=== PATIENT | female | born 1970 | race Caucasian/White ===

== ENCOUNTER 2017-03-07 14:39 | Emergency (ER) | payer BC ==
[2017-03-07] MEDS: MORPHINE 2 MG/ML 1ML SYRINGE IV ×2 (15:42→16:18)
[2017-03-07 15:51] LABS: BASO # 0.1 10^3/uL (0.0-0.2); BASO % 0.4 % (0.0-1.0); EOS # 0.2 10^3/uL (0.0-0.50); EOS % 1.3 % (0.0-3.0); HEMATOCRIT 43.4 % (36.0-47.0); HEMOGLOBIN 14.4 g/dl (12.0-16.0); IMMATURE GRANULOCYTE % 0.2 % (0-0); LYMPH # 3.6 10^3/uL (1.5-4.5); LYMPH % 26.3 % (24.0-44.0); MEAN CORPUSCULAR HEMOGLOBIN 30.8 pg (27.0-33.0); MEAN CORPUSCULAR HGB CONC 33.2 g/dl (32.0-36.5); MEAN CORPUSCULAR VOLUME 92.7 fl (80.0-96.0); MONO # 0.5 10^3/uL (0.0-0.8); MONO % 3.9 % (0.0-5.0); NEUTROPHILS # 9.3 10^3/uL (1.8-7.7); NEUTROPHILS % 67.9 % (36.0-66.0); PLATELET COUNT, AUTOMATED 271 10^3/uL (150-450); RED BLOOD COUNT 4.68 10^6/uL (4.00-5.40); RED CELL DISTRIBUTION WIDTH 12.4 % (11.5-14.5); WHITE BLOOD COUNT 13.7 10^3/uL (4.0-10.0)
[2017-03-07 16:06] LABS: LACTIC ACID SEPSIS PROTOCOL 0.7 MMOL/L (0.4-2.0)
[2017-03-07 16:07] LABS: ALBUMIN/GLOBULIN RATIO 1.11 (1.00-1.93); ALKALINE PHOSPHATASE 102 U/L (45-117); ALT/SGPT 24 U/L (12-78); ANION GAP 6 MEQ/L (8-16); AST/SGOT 18 U/L (7-37); BILIRUBIN,DIRECT < 0.1 MG/DL (0.0-0.2); BILIRUBIN,TOTAL 0.2 MG/DL (0.2-1.0); BLOOD UREA NITROGEN 18 MG/DL (7-18); C REACTIVE PROTEIN QUANTITATIV 1.72 MG/DL (0.00-0.30); CALCIUM LEVEL 9.2 MG/DL (8.5-10.1); CARBON DIOXIDE LEVEL 27 MEQ/L (21-32); CHLORIDE LEVEL 106 MEQ/L (98-107); CREATININE FOR GFR 0.67 MG/DL (0.55-1.30); GLOMERULAR FILTRATION RATE > 60.0 (>58); GLUCOSE, FASTING 110 MG/DL (70-100); POTASSIUM SERUM 3.9 MEQ/L (3.5-5.1); SODIUM LEVEL 139 MEQ/L (136-145); TOTAL PROTEIN 7.6 GM/DL (6.4-8.2)
[2017-03-07] MEDS ORDERED: ISOVUE-370 76% 100ML VIAL (Q9967) As Ordered (16:38)
[2017-03-07] MEDS: ALPRAZolam 0.25 MG TAB PO (17:49)
[2017-03-07] MEDS: CLINDAMYCIN 900 MG in APPROPRIATE DILUENT 1 EA IV (17:49)
[2017-03-07] MEDS: KETOROLAC 30 MG/ML VIAL (J1885) IV (18:59)
[2017-03-07] MEDS: ONDANSETRON 4MG/2ML VIAL (J2405) IV (19:24)
[2017-03-07] MEDS: diphenhydrAMINE INJ 50MG/ML VIAL (J1200) IV (19:24)
[2017-03-07] MEDS: MORPHINE 4 MG/ML 1ML SYRINGE IV (19:25)
== END 2017-03-07 19:41 | disposition home or self-care (01) ==
LOC: M ED 14:39
DX: K04.7 Periapical abscess without sinus (principal); S02.5XXA Fracture of tooth (traumatic), initial encounter for closed fracture; X58.XXXA Exposure to other specified factors, initial encounter; Y92.89 Other specified places as the place of occurrence of the external cause; F41.9 Anxiety disorder, unspecified; F17.210 Nicotine dependence, cigarettes, uncomplicated; Z79.899 Other long term (current) drug therapy; Z87.42 Personal history of other diseases of the female genital tract; Z98.890 Other specified postprocedural states
CPT/HCPCS: J1200

== ENCOUNTER 2017-03-08 08:45 | Inpatient (IN) | payer BC ==
[2017-03-08] MEDS ORDERED: ONDANSETRON 4MG/2ML VIAL (J2405) IV ×2 (11:15→20:15)
[2017-03-08] MEDS: MORPHINE 2 MG/ML 1ML SYRINGE IV ×3 (11:19→22:12)
[2017-03-08] MEDS: AMPICILLIN SOD/SULBACTAM SOD 3 GM in D5W MINI-BAG PLUS 100 ML IV ×3 (11:20→23:43)
[2017-03-08] MEDS: D5W/0.45% SODIUM CHLORIDE 1,000 ML IV ×2 (11:21→21:09)
[2017-03-08] MEDS: PERCOCET 5MG/325MG TAB PO ×3 (12:00→21:08)
[2017-03-08] MEDS: IBUPROFEN 800 MG TAB PO ×2 (14:11→21:08)
[2017-03-08] MEDS ORDERED: fentaNYL 100 MCG/2 ML INJECTION (J3010) As Ordered (18:31)
[2017-03-08] MEDS ORDERED: LIDOCAINE 2% INJ 100 MG/5 ML SDV (FOR ANES.) As Ordered (18:31)
[2017-03-08] MEDS ORDERED: ROCURONIUM BROMIDE 50 MG/5 ML VIAL As Ordered (18:31)
[2017-03-08] MEDS ORDERED: MIDAZOLAM INJ 2 MG/2 ML VIAL (J2250) As Ordered (18:31)
[2017-03-08] MEDS ORDERED: PROPOFOL 200 MG/20 ML VIAL As Ordered (18:31)
[2017-03-08] MEDS ORDERED: ONDANSETRON 4MG/2ML VIAL (J2405) As Ordered (19:02)
[2017-03-08] MEDS ORDERED: KETOROLAC 60 MG/2 ML VIAL (J1885) As Ordered (19:08)
[2017-03-08] MEDS ORDERED: NEOSTIGMINE 10 MG/10 ML VIAL (J2710) As Ordered (19:09)
[2017-03-08] MEDS ORDERED: GLYCOPYRROLATE INJ 0.2 MG/ML 2 ML VIAL As Ordered (19:09)
[2017-03-08] MEDS: LR 1,000 ML IV (20:15)
[2017-03-08] MEDS ORDERED: METOCLOPRAMIDE INJ 10MG/2ML VIAL (J2765) IV (20:15)
[2017-03-08] MEDS ORDERED: PERCOCET 5MG/325MG TAB PO (20:15)
[2017-03-08] MEDS ORDERED: MORPHINE 10 MG/ML 1ML VIAL IV (20:15)
[2017-03-08] MEDS ORDERED: fentaNYL 100 MCG/2 ML INJECTION (J3010) IV (20:15)
[2017-03-09] MEDS: PERCOCET 5MG/325MG TAB PO ×6 (02:12→21:37)
[2017-03-09 05:33] LABS: HEMATOCRIT 34.9 % (36.0-47.0); MEAN CORPUSCULAR HEMOGLOBIN 30.8 pg (27.0-33.0); MEAN CORPUSCULAR HGB CONC 32.7 g/dl (32.0-36.5); MEAN CORPUSCULAR VOLUME 94.3 fl (80.0-96.0); PLATELET COUNT, AUTOMATED 217 10^3/uL (150-450); RED CELL DISTRIBUTION WIDTH 12.7 % (11.5-14.5); WHITE BLOOD COUNT 10.1 10^3/uL (4.0-10.0)
[2017-03-09 05:40] LABS: HEMOGLOBIN 11.4 g/dl (12.0-16.0)
[2017-03-09] MEDS: AMPICILLIN SOD/SULBACTAM SOD 3 GM in D5W MINI-BAG PLUS 100 ML IV ×4 (05:46→23:37)
[2017-03-09] MEDS: IBUPROFEN 800 MG TAB PO ×3 (05:46→21:38)
[2017-03-09] MEDS: MORPHINE 2 MG/ML 1ML SYRINGE IV (17:29)
[2017-03-10] MEDS: PERCOCET 5MG/325MG TAB PO ×5 (01:55→22:29)
[2017-03-10] MEDS: IBUPROFEN 800 MG TAB PO ×3 (06:28→22:31)
[2017-03-10] MEDS: AMPICILLIN SOD/SULBACTAM SOD 3 GM in D5W MINI-BAG PLUS 100 ML IV ×3 (06:29→17:43)
[2017-03-10 07:13] LABS: HEMATOCRIT 37.4 % (36.0-47.0); MEAN CORPUSCULAR HEMOGLOBIN 30.5 pg (27.0-33.0); MEAN CORPUSCULAR HGB CONC 32.1 g/dl (32.0-36.5); MEAN CORPUSCULAR VOLUME 94.9 fl (80.0-96.0); PLATELET COUNT, AUTOMATED 221 10^3/uL (150-450); RED BLOOD COUNT 3.94 10^6/uL (4.00-5.40); RED CELL DISTRIBUTION WIDTH 12.5 % (11.5-14.5); WHITE BLOOD COUNT 8.3 10^3/uL (4.0-10.0)
[2017-03-10] MEDS ORDERED: ISOVUE-370 76% 100ML VIAL (Q9967) As Ordered (07:52)
[2017-03-10] MEDS: MORPHINE 2 MG/ML 1ML SYRINGE IV ×2 (10:53→14:26)
[2017-03-10] MEDS: PARoxetine 20 MG TAB PO (11:03)
[2017-03-10] MEDS ORDERED: LIDOCAINE 2% INJ 100 MG/5 ML SDV (FOR ANES.) As Ordered (15:51)
[2017-03-10] MEDS ORDERED: ONDANSETRON 4MG/2ML VIAL (J2405) As Ordered (15:51)
[2017-03-10] MEDS ORDERED: fentaNYL 100 MCG/2 ML INJECTION (J3010) As Ordered (15:51)
[2017-03-10] MEDS ORDERED: dexameTHASONE 4 MG/ML 1ML VIAL (J1100) As Ordered (15:51)
[2017-03-10] MEDS ORDERED: PROPOFOL 200 MG/20 ML VIAL As Ordered (15:51)
[2017-03-10] MEDS ORDERED: MIDAZOLAM INJ 2 MG/2 ML VIAL (J2250) As Ordered (15:52)
[2017-03-10] MEDS ORDERED: ROCURONIUM BROMIDE 50 MG/5 ML VIAL As Ordered (16:36)
[2017-03-10] MEDS: FLUCONAZOLE 50MG TABLET PO (18:22)
[2017-03-11] MEDS: AMPICILLIN SOD/SULBACTAM SOD 3 GM in D5W MINI-BAG PLUS 100 ML IV ×4 (00:48→18:48)
[2017-03-11] MEDS: PERCOCET 5MG/325MG TAB PO ×4 (05:59→19:44)
[2017-03-11] MEDS: IBUPROFEN 800 MG TAB PO ×2 (06:01→13:57)
[2017-03-11] MEDS: PARoxetine 20 MG TAB PO (09:04)
== END 2017-03-11 19:50 | disposition home or self-care (01) | DRG 98 ==
LOC: M PED 08:45
PROC: 0CDXXZ1 Extraction of Lower Tooth, Multiple, External Approach (ICD-10-PCS; principal; 2017-03-08 09:05)
PROC: 0W930ZZ Drainage of Oral Cavity and Throat, Open Approach (ICD-10-PCS; 2017-03-08 09:05)
DX: K04.7 Periapical abscess without sinus (principal); K12.2 Cellulitis and abscess of mouth

== ENCOUNTER → 2024-03-04 | Outpatient (CLI) | payer OTHER ==
[~2024-03-04] MED LIST: ADVI200C3 PO; AUGM875T28 PO; BIOT10TA2 PO; BIOT1CAP3 PO; DIFL150T PO; IBUP200C25 PO; IBUP80TA PO; PARO20TA3 PO; PERC5TAB12 PO
== END ==
LOC: M WHC 11:41
PROVIDERS: ATTEND Specialist
DX: Z12.31 Encounter for screening mammogram for malignant neoplasm of breast (principal)

== ENCOUNTER → 2024-04-10 | Outpatient (CLI) | payer OTHER | LOC: M WHC 10:50 | PROVIDERS: ATTEND Specialist | DX: Z12.31 Encounter for screening mammogram for malignant neoplasm of breast (principal) ==

== ENCOUNTER 2024-10-10 06:09 | Day surgery (SDC) | payer OTHER ==
[~2024-10-10] VITALS: Ht 167.6 cm; Wt 88.9 kg
[~2024-10-10 06:09] MED LIST changes: +AMPH1CAP16 PO; +GNPTAB36 PO; +PHENYLEPHRINE 10% OPHTH SOL 5ML OD PRN
[2024-10-10] MEDS: PHENYLEPHRINE 2.5% OPHTH SOL 2ML OD SCH (06:52)
[2024-10-10] MEDS: OFLOXACIN 0.3 % (OCUFLOX) OPTH SOL 5ML OD ONE (06:52)
[2024-10-10] MEDS: TROPICAMIDE 1% OPHTH SOLN 15ML OD SCH (06:52)
[2024-10-10] MEDS: LIDOCAINE 3.5% 1 ML OPHTH TOPICAL GEL OU ONE (06:52)
[2024-10-10] MEDS: CYCLOPENTOLATE 1% OPHTH SOLN 2 ML BTL OD SCH (06:52)
[2024-10-10] MEDS ORDERED: MIDAZOLAM INJ 2 MG/2 ML VIAL As Ordered ONE (07:02)
[2024-10-10] MEDS: LIDOCAINE 1% SDV 5 ML VIAL As Ordered ONE (08:07)
[2024-10-10] MEDS: BSS IRRIG/VANCO(10MG)/TOBRA(5MG)/EPINEPH(1:1000-0.5CC)500ML BAG-ORONLY As Ordered ONE (08:07)
[2024-10-10] MEDS: CEFUROXIME 1 MG/0.1 ML INTRACAMERAL INJ As Ordered ONE (08:15)
[2024-10-10 08:20] VITALS: BP 144/73; TEMP 97; O2SAT 100
== END 2024-10-10 08:47 | disposition home or self-care (01) ==
LOC: M SDC 06:09
PROVIDERS: ATTEND Ophthalmology
DX: H25.11 Age-related nuclear cataract, right eye (principal); Z79.899 Other long term (current) drug therapy; F17.210 Nicotine dependence, cigarettes, uncomplicated
CPT/HCPCS: 66984; J0697; J2250; J3010